=== PATIENT | male | born 1985 | race Caucasian/White ===

== ENCOUNTER 2020-06-11 15:15 | Outpatient (CLI) | payer OTHER | END 2020-06-11 15:16 | disposition home or self-care (01) | LOC: CTENTCT 15:15 | PROVIDERS: ATTEND Student in an Organized Health Care Education/Training Program | DX: J32.9 Chronic sinusitis, unspecified (principal) | CPT/HCPCS: 70486 ==

== ENCOUNTER 2021-04-25 09:45 | Outpatient (CLI) | payer OTHER | END 2021-04-25 09:46 | disposition home or self-care (01) | LOC: BICRAD 09:45 | PROVIDERS: ATTEND Family Medicine | DX: S61.432A Puncture wound without foreign body of left hand, initial encounter (principal) ==